=== PATIENT | female | born 1970 | race Hispanic/Latino ===

== ENCOUNTER → 2024-12-02 | Outpatient (CLI) | payer OTHER ==
--- NOTE | 2024-12-02 13:45 | HMCIMG ---
MR SPINAL CANAL, LUMBAR WO CON REASON: RADICULOPATHY LUMBAR REGION COMPARISON: None TECHNIQUE: Routine lumbar imaging protocol was performed. FINDINGS: There are normal appearing vertebral bodies. Intervertebral disc space heights appear preserved. Alignment is normal. Neural foramina are widely patent. Axial images show marked degenerative changes in the facets and ligamentum flavum at the L4-5 level. These findings result in severe spinal stenosis, AP diameter in the midline between 4 and 5 mm. There is osteophyte causing additional narrowing in the right lateral recess. Remaining interspaces are widely patent. There are no other areas of spinal stenosis. There are no focal osseous lesion. Stranding soft tissues appear unremarkable. IMPRESSION: 1. Severe spinal stenosis at L4-5 on a degenerative basis.
== END | disposition home or self-care (01) ==
LOC: RAH 12:28
PROVIDERS: ATTEND Internal Medicine
DX: M48.061 Spinal stenosis, lumbar region without neurogenic claudication (principal); M47.26 Other spondylosis with radiculopathy, lumbar region
CPT/HCPCS: 72148

== ENCOUNTER → 2024-12-11 | Outpatient (CLI) | payer OTHER ==
--- NOTE | 2024-12-11 15:35 | HMCIMG ---
MRI OF THE THORACIC SPINE WITHOUT GADOLINIUM Clinical Information: M54.6 Pain in thoracic spine Comparison: none Technique: Sagittal T1 and T2 FSE, Sagittal STIR and Sagittal proton density images were completed through the thoracic spine. Axial T1, T2 and proton density images were also acquired. FINDINGS: The examination is unremarkable. Specifically, no fractures or dislocations are seen. There is adequate alignment of the entire visualized portions of the spine. The disc spaces are preserved. There are no herniations or bulges. No paraspinal abnormalities are seen. IMPRESSION: NORMAL MRI OF THE THORACIC SPINE.
--- NOTE | 2024-12-11 15:36 | HMCIMG ---
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 Axial T1, T2 and proton density images were also acquired. FINDINGS: Examination shows adequate alignment of the vertebral bodies of the cervical spine. No fractures or dislocations are identified. Vertebral body height and disc height is preserved at all levels. The bone marrow signal is normal for age. The spinal canal contents are preserved. The paraspinal muscles and other tissues show no significant abnormalities. There are spondylitic changes. Evaluation of the cervical spine by level: C1-C2: There is no spinal canal stenosis. No disc protrusion or extrusion is noted. There is no neural foraminal stenosis, impingement, or narrowing. C2-C3: There is no spinal canal stenosis. No disc protrusion or extrusion is noted. There is no neural foraminal stenosis, impingement, or narrowing. C3-C4: Central zone disc protrusion is noted causing mild spinal canal stenosis without cord impingement or nerve root impingement. C4-C5: Central zone disc protrusion is noted causing mild spinal canal stenosis without cord impingement or nerve root impingement. C5-C6: Central zone disc protrusion is noted causing mild spinal canal stenosis without cord impingement or nerve root impingement. C6-C7: Moderate central zone disc protrusion is seen causing impression on the cord without actual compression. There is left neural foraminal narrowing and nerve root impingement. C7-T1: There is no spinal canal stenosis. No disc protrusion or extrusion is noted. There is no neural foraminal stenosis, impingement, or narrowing. Impression: Moderate central zone disc protrusion is seen at C6-7 causing impression on the cord without actual compression. There is left neural foraminal narrowing and nerve root impingement.
== END | disposition home or self-care (01) ==
LOC: RAH 14:02
PROVIDERS: ATTEND Internal Medicine
DX: M50.223 Other cervical disc displacement at C6-C7 level (principal); M48.02 Spinal stenosis, cervical region; M46.92 Unspecified inflammatory spondylopathy, cervical region; M54.6 Pain in thoracic spine
CPT/HCPCS: 72141; 72146

== ENCOUNTER → 2025-08-20 | Outpatient (CLI) | payer OTHER ==
[2025-08-20 08:11] LABS: IMMATURE GRANULOCYTE ABSOLUTE 0.02 K/uL (0-1); NUCLEATED RED BLOOD CELLS 0.0 % (0.0-0.19); PLATELET COUNT (AUTO) 393 K/uL (130-400); RED BLOOD CELL COUNT(AUTO) 5.13 MIL/uL (4.00-5.50); RED CELL DISTRIBUTION WIDTH 14.4 % (11.0-15.5); WHITE BLOOD COUNT (AUTO) 6.6 K/uL (4.8-10.8)
[2025-08-20 08:40] LABS: ASPARTATE AMINOTRANSFERASE 14.0 U/L (10-37); CREATININE 0.8 mg/dL (0.5-1.0); GLOMERULAR FILTR. RATE CALC 88.0 mL/min (>90); GLUCOSE,RANDOM 98.0 mg/dL (70-105); LDL DIRECT 121.0 mg/dL (0-99); SODIUM SERUM 141.0 mmol/L (136-145); TOTAL PROTEIN, SERUM 7.4 g/dL (6.0-8.3); UREA NITROGEN, BLOOD 22.0 mg/dL (7-18)
== END | disposition home or self-care (01) ==
LOC: LAB 07:35
PROVIDERS: ATTEND Internal Medicine
DX: R74.8 Abnormal levels of other serum enzymes (principal); Z13.29 Encounter for screening for other suspected endocrine disorder; Z13.1 Encounter for screening for diabetes mellitus; Z13.220 Encounter for screening for lipoid disorders; Z00.00 Encounter for general adult medical examination without abnormal findings
CPT/HCPCS: 36415; 80053; 80061; 83036; 84443; 85025

== ENCOUNTER → 2025-09-02 | Outpatient (CLI) | payer OTHER ==
--- NOTE | 2025-09-02 14:11 | HMCIMG ---
DIGITAL BILATERAL SCREENING MAMMOGRAM Technique: The digital mammographic examination of both breasts in craniocaudal and mediolateral oblique views along with CAD was obtained. History: This is a 55 years year-old female for screening mammogram. Patient has no family history of breast cancer. Patient has no complaint Reference:Baseline mammogram. Breast composition: Breast composition C: The breasts are heterogeneously dense, which may obscure small masses. Finding: The digital mammographic examination of both breasts in craniocaudal and mediolateral oblique view along with CAD demonstrates both breasts to be moderately heterogeneously nodular dense. There are scattered microcalcification in the right breast suggesting of sclerosing adenosis. There is also macrocalcification in the left breast upper outer quadrant.. There is no evidence of any dendritic mass, cluster microcalcification or architectural distortion. The retromammary fat appears to be normal. IMPRESSION: Due to moderately heterogeneously nodular dense breasts I would recommend a baseline bilateral breast sonogram.. FINAL ASSESSMENT: ACR: BI-RAD -0. Incomplete: need additional imaging evaluation. NOTE: IF A WORK-UP OF THIS PATIENT LEADS TO A BIOPSY, PLEASE FORWARD A COPY OF THE PATHOLOGY REPORT TO OUR OFFICE REQUIRED BY [employer] AUGUST 04, 1994. A NEGATIVE MAMMOGRAM SHOULD NOT PRECLUDE BIOPSY OF A CLINICALLY PALPABLE SUSPICIOUS MASS, 10% OF BREAST CANCERS ARE MAMMOGRAPHICALLY OCCULT. THIS MAMMOGRAPHY FACILITY IS FULLY ACCREDITED BY THE [employer]OD AND [employer]UG [employer] (FDA). THANK YOU FOR THIS REFERRAL.
== END | disposition home or self-care (01) ==
LOC: RAH 12:39
PROVIDERS: ATTEND Internal Medicine
DX: Z12.31 Encounter for screening mammogram for malignant neoplasm of breast (principal); R92.333 Mammographic heterogeneous density, bilateral breasts
CPT/HCPCS: 77067